=== PATIENT | male | born 1950 | race Caucasian/White ===

== ENCOUNTER 2017-04-13 07:43 | Emergency (ER) | payer BC, MEDICARE ==
[2017-04-13 08:24] VITALS: BP 147/93
[2017-04-13] MEDS ORDERED: Albuterol/Ipratropium 3.0-0.5 MG/3 ML Neb Soln NEB PRN (08:33)
--- NOTE | 2017-04-13 09:45 | CT ---
DATE OF SERVICE: 04/13/17 CLINICAL DATA: NUMBNESS UNENHANCED BRAIN CT: Multislice acquisition through the brain without IV contrast was performed. No priors. There is diffuse cerebral atrophy. No masses or mass effect. No intracranial hemorrhage. No evidence of acute or subacute infarct. There is mild mucosal thickening in the ethmoid sinuses consistent with chronic sinusitis. IMPRESSION: No acute intracranial abnormalities. [id number] [facility]
--- NOTE | 2017-04-13 14:39 | ER ---
HISTORY OF PRESENT ILLNESS: A 66-year-old male who comes in with his with complaints of numbness of the left hand and wrist area. The patient states he woke up with it this morning. It is not changing. There is no pain. He did not have any recent falls or injuries. The patient denies any headache. He denies any weakness of the extremity and denies any symptoms involving his left leg. 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 He is not sure if this is part of it or not. The patient does not have any symptoms such as chest pain, chest tightness, or shortness of breath. He does have chest congestion and a cough. He states it is getting better. He has also been told he has COPD, but he does not use any inhalers for this. OBJECTIVE: GENERAL APPEARANCE: The patient is awake and alert. Pleasant and talkative with clear speech. VITAL SIGNS: Reviewed. Blood pressure initially 136/93, O2 sats are 98%, pulse 78. EYES: Pupils are equal, round, and reactive to light. EOMs are intact. HEAD: Normocephalic. EARS: TMs are normal. ORAL: Mucous membranes are moist. Tonsils are not enlarged or injected. Pharynx not inflamed. NECK: Supple. LUNGS: Reveal slightly reduced air exchange with minimal tightness at endpoints of expiration. CARDIAC: Heart sounds are distinct without murmurs. SKIN: Warm and dry. NEUROLOGIC: Cranial nerves 2 through 12 are intact. Hand grasp is present and equal. The patient has light touch intact and he has full and unguarded range of motion of the left hand as well as the left leg. LAB AND X-RAY: EKG shows a normal sinus rhythm. Head CT without contrast is negative for CVA. Labs include a CBC, which is normal. D-dimer is negative. CMP is unremarkable. Troponin is normal. The patient was given a DuoNeb treatment to help with his lung function and it did help with his breathing and coughing. DIAGNOSES: 1. Left hand and wrist numbness, possible early-stage carpal tunnel. 2. Chronic obstructive pulmonary disease. TREATMENT PLAN: A wrist brace will be given to the patient. He is to wear this mainly at night and during the day as needed. Activity should remain as tolerated with no restrictions, and I want the patient to follow up next week in the clinic with his primary care provider for recheck. Follow up of course sooner if his symptoms should get worse. CRS/MODL /[id number]
== END 2017-04-13 09:20 | disposition home or self-care (01) ==
LOC: LB.ED 07:43
DX: R20.0 Anesthesia of skin (principal); J44.9 Chronic obstructive pulmonary disease, unspecified
CPT/HCPCS: 36415; 70450; 80053; 84484; 85025; 85379; 93005; 99283; 99284-25

== ENCOUNTER 2018-12-31 11:24 | Emergency (ER) | payer MEDICARE, BC ==
[2018-12-31 11:47] VITALS: BP 136/91; PULSE 90
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
[2019-01-02] MEDS: Bacitracin Oint 1 GM U/D Packet TOP ONE (12:00)
== END 2018-12-31 12:13 | disposition home or self-care (01) ==
LOC: LB.ED 11:24
DX: S81.811A Laceration without foreign body, right lower leg, initial encounter (principal); I10 Essential (primary) hypertension; J44.9 Chronic obstructive pulmonary disease, unspecified; Z79.899 Other long term (current) drug therapy; Z91.030 Bee allergy status; V86.79XA Person on outside of other special all-terrain or other off-road motor vehicles injured in nontraffic accident, initial encounter
CPT/HCPCS: 12002; 99282; J2001

== ENCOUNTER 2019-04-15 07:32 | Emergency (ER) | payer MEDICARE, BC ==
[2019-04-15 07:52] VITALS: BP 156/100; PULSE 99
--- NOTE | 2019-04-15 08:22 | EDM.PDOC ---
ED HPI GENERAL MEDICAL PROBLEM - General Chief Complaint: Genitourinary Problem Stated Complaint: ABD PAIN Time Seen by Provider: 04/15/19 08:05 Source of Information: Reports: Patient, RN - History of Present Illness INITIAL COMMENTS - FREE TEXT/NARRATIVE: 68 yo male presents with trouble with urination since about 1 am, he did feel some chills and thought he had the flu. Pain increased into right, lateral, posterior back and did have some indigestion and took a nitro and ibuprofen at home with no relief, some generalized abdominal tenderness and fullness. States last BM yesterday and loose. Treatments [employer]: Reports: NSAIDS Right Lower Posterior Back Pain Score (Numeric/FACES): 8 - Related Data Allergies Allergy/AdvReac Type Severity Reaction Status Date / Time venom-honey bee Allergy Severe Anaphylactic Verified 12/31/18 11:47 [bee venom (honey bee)] Shock Home Meds: Home Meds Metoprolol Tartrate 50 mg PO DAILY 02/01/15 [History] amLODIPine Besylate [Amlodipine Besylate] 5 mg PO DAILY 02/01/15 [History] Aspirin 81 mg PO DAILY 05/20/15 [History] EPINEPHrine [Epinephrine] 0.3 mg SQ ASDIRECTED PRN 05/20/15 [History] Nitroglycerin [Nitrostat] 0.4 mg PO ATDISCHARGE PRN 05/20/15 [History] Spickard-3/DHA/Epa/Fish Oil [Fish Oil 1,000 mg Softgel] 1 tab PO DAILY 05/20/15 [ History] Ramipril 10 mg PO DAILY 05/20/15 [History] Tamsulosin [Tamsulosin 24 Hr] 0.4 mg PO DAILY #30 cap.er 04/15/19 [Rx] Past Medical History HEENT History: Reports: Other (See Below) Other HEENT History: Reading Glasses Cardiovascular History: Reports: Arrhythmia, High Cholesterol, Hypertension Respiratory History: Reports: COPD Gastrointestinal History: Reports: Colon Polyp Dermatologic History: Reports: Psoriasis - Infectious Disease History Infectious Disease History: Reports: Chicken Pox, Measles - Past Surgical History GI Surgical History: Reports: Colonoscopy, Polypectomy Social & Family History - Family History Family Medical History: Noncontributory ED ROS GENERAL - Review of Systems Review Of Systems: See Below Constitutional: Reports: No Symptoms HEENT: Reports: No Symptoms Respiratory: Reports: No Symptoms Cardiovascular: Reports: Other (chest pressure, indigestion) GI/Abdominal: Reports: Abdominal Pain, Nausea. Denies: Vomiting : Reports: Dysuria, Flank Pain Musculoskeletal: Reports: Back Pain Skin: Reports: No Symptoms Neurological: Reports: No Symptoms. Denies: Confusion, Dizziness, Headache ED EXAM, GENERAL - Physical Exam Exam: See Below Exam Limited By: No Limitations General Appearance: Alert, Other (pain 8/10) Throat/Mouth: Normal Voice, No Airway Compromise Head: Atraumatic, Normocephalic Respiratory/Chest: No Respiratory Distress, Lungs Clear, Normal Breath Sounds Cardiovascular: Regular Rate, Rhythm, No Edema GI/Abdominal: Tender Extremities: Normal Inspection, Non-Tender, No Pedal Edema, Normal Capillary Refill Neurological: Alert, Oriented, Normal Cognition Psychiatric: Normal Affect, Normal Mood Skin Exam: Warm, Dry, Normal Color Course - Vital Signs Last Recorded V/S: Last Vital Signs Temp 97.5 F 04/15/19 07:43 Pulse 99 04/15/19 07:43 Resp 16 04/15/19 07:43 BP 156/100 H 04/15/19 07:43 Pulse Ox 96 04/15/19 07:43 - Orders/Labs/Meds Orders: Active Orders 24 hr Category Date Time Status EKG Documentation Completion [RC] ASDIRECTED Care 04/15/19 08:16 Active Abdomen Pelvis wo Cont [CT] Stat Exams 04/15/19 08:27 Taken Saline Lock Insert [OM.PC] Routine Oth 04/15/19 08:30 Ordered Labs: Laboratory Tests 04/15/19 04/15/19 04/15/19 Range/Units 07:55 08:00 08:00 WBC 5.5 D (4.0-11.0) K/uL RBC 4.95 (4.50-6.50) M/uL Hgb 16.3 (13.0-18.0) g/dL Hct 45.5 (40.0-54.0) % MCV 92 (76-96) fL MCH 32.9 H (27.0-32.0) pg MCHC 35.8 H (31.0-35.0) g/dL RDW 11.9 (11.0-16.0) % Plt Count 64 L D (150-400) K/uL MPV 11.4 H (6.0-10.0) fL Neut % (Auto) 72.5 H (45.0-70.0) % Lymph % (Auto) 19.2 L (20.0-40.0) % Preble % (Auto) 7.4 (3.0-10.0) % Eos % (Auto) 0.5 L (1.0-5.0) % Baso % (Auto) 0.4 (0.0-0.5) % Neut # (Auto) 4.01 (2.00-7.50) K/uL Lymph # (Auto) 1.06 L (1.50-4.00) K/uL Preble # (Auto) 0.41 (0.20-0.80) K/uL Eos # (Auto) 0.03 L (0.04-0.40) K/uL Baso # (Auto) 0.02 (0.02-0.10) K/uL Sodium 142 (136-145) mmol/L Potassium 3.7 (3.5-5.1) mmol/L Chloride 102 (98-107) mmol/L Carbon Dioxide 25.1 (21.0-32.0) mmol/L Anion Gap 18.6 H (5.0-15.0) mmol/L BUN 24 (8-26) mg/dL Creatinine 1.06 D (0.70-1.30) mg/dL Est Cr Clr Drug Dosing 74.22 mL/min Estimated GFR (MDRD) > 60 (>60) MLS/MIN BUN/Creatinine Ratio 22.6 (6-25) Glucose 128 H (74-100) mg/dL Calcium 9.5 (8.5-10.1) mg/dL Total Bilirubin 0.7 (0.0-1.0) mg/dL AST 56 H (15-37) U/L ALT 65 (12-78) U/L Alkaline Phosphatase 70 (46-116) U/L Troponin I (0.000-0.060) ng/mL Total Protein 7.3 (6.4-8.2) g/dL Albumin 4.6 (3.4-5.0) g/dL Globulin 2.7 (2.2-4.2) g/dL Albumin/Globulin Ratio 1.7 (0.8-2.0) Urine Color Yellow Urine Appearance Clear (CLEAR) Urine pH 5.0 (5.0-8.0) Ur Specific Lehr >= 1.030 (1.003-1.030) Urine Protein 30 H (NEGATIVE) mg/dL Urine Glucose (UA) Negative (NEGATIVE) mg/dL Urine Ketones Negative (NEGATIVE) mg/dL Urine Occult Blood Small H (NEGATIVE) Urine Nitrite Negative (NEGATIVE) Urine Bilirubin Negative (NEGATIVE) Urine Urobilinogen 0.2 (0.2-1.0) E.U./dL Ur Leukocyte Esterase Negative (NEGATIVE) Urine RBC 0-5 H /HPF Urine WBC 0-5 H /HPF Ur Squamous Epith Cells Few /HPF Amorphous Sediment Occasional /HPF Urine Bacteria Not seen /HPF Urine Other Not Reportable 04/15/19 Range/Units 08:16 WBC (4.0-11.0) K/uL RBC (4.50-6.50) M/uL Hgb (13.0-18.0) g/dL Hct (40.0-54.0) % MCV (76-96) fL MCH (27.0-32.0) pg MCHC (31.0-35.0) g/dL RDW (11.0-16.0) % Plt Count (150-400) K/uL MPV (6.0-10.0) fL Neut % (Auto) (45.0-70.0) % Lymph % (Auto) (20.0-40.0) % Preble % (Auto) (3.0-10.0) % Eos % (Auto) (1.0-5.0) % Baso % (Auto) (0.0-0.5) % Neut # (Auto) (2.00-7.50) K/uL Lymph # (Auto) (1.50-4.00) K/uL Preble # (Auto) (0.20-0.80) K/uL Eos # (Auto) (0.04-0.40) K/uL Baso # (Auto) (0.02-0.10) K/uL Sodium (136-145) mmol/L Potassium (3.5-5.1) mmol/L Chloride (98-107) mmol/L Carbon Dioxide (21.0-32.0) mmol/L Anion Gap (5.0-15.0) mmol/L BUN (8-26) mg/dL Creatinine (0.70-1.30) mg/dL Est Cr Clr Drug Dosing mL/min Estimated GFR (MDRD) (>60) MLS/MIN BUN/Creatinine Ratio (6-25) Glucose (74-100) mg/dL Calcium (8.5-10.1) mg/dL Total Bilirubin (0.0-1.0) mg/dL AST (15-37) U/L ALT (12-78) U/L Alkaline Phosphatase (46-116) U/L Troponin I < 0.017 (0.000-0.060) ng/mL Total Protein (6.4-8.2) g/dL Albumin (3.4-5.0) g/dL Globulin (2.2-4.2) g/dL Albumin/Globulin Ratio (0.8-2.0) Urine Color Urine Appearance (CLEAR) Urine pH (5.0-8.0) Ur Specific Lehr (1.003-1.030) Urine Protein (NEGATIVE) mg/dL Urine Glucose (UA) (NEGATIVE) mg/dL Urine Ketones (NEGATIVE) mg/dL Urine Occult Blood (NEGATIVE) Urine Nitrite (NEGATIVE) Urine Bilirubin (NEGATIVE) Urine Urobilinogen (0.2-1.0) E.U./dL Ur Leukocyte Esterase (NEGATIVE) Urine RBC /HPF Urine WBC /HPF Ur Squamous Epith Cells /HPF Amorphous Sediment /HPF Urine Bacteria /HPF Urine Other Meds: Medications Discontinued Medications Generic Name Dose Route Start Last Admin Trade Name Freq PRN Reason Stop Dose Admin Hydromorphone HCl 0.5 mg 04/15/19 08:34 Dilaudid IVPUSH Q2H PRN Pain (severe 7-10) Sodium Chloride 1,000 mls @ 500 mls/hr 04/15/19 08:30 04/15/19 09:10 Normal Saline IV 500 mls/hr ASDIRECTED CHARY Administration Ketorolac Tromethamine 30 mg 04/15/19 08:39 04/15/19 08:42 Toradol IM 04/15/19 08:40 30 mg ONETIME ONE Administration Ketorolac Tromethamine Confirm 04/15/19 08:47 04/15/19 10:09 Toradol Administered 01/14/20 08:48 Not Given Dose 30 mg .ROUTE .STK-MED ONE Ondansetron HCl 4 mg 04/15/19 08:39 04/15/19 08:41 Zofran Odt PO 4 mg Q4H PRN Administration Nausea/Vomiting Ondansetron HCl Confirm 04/15/19 08:47 04/15/19 10:09 Zofran Odt Administered 04/15/19 08:48 Not Given Dose 4 mg .ROUTE .STK-MED ONE Sodium Chloride 10 ml 04/15/19 08:30 Saline Flush FLUSH ASDIRECTED PRN Keep Vein Open Tamsulosin HCl 0.4 mg 04/15/19 09:31 04/15/19 09:35 Flomax PO 04/15/19 09:32 0.4 mg ONETIME ONE Administration Tamsulosin HCl Confirm 04/15/19 09:32 04/15/19 10:09 Flomax Administered 04/15/19 09:33 Not Given Dose 0.4 mg .ROUTE .STK-MED ONE - Re-Assessments/Exams Free Text/Narrative Re-Assessment/Exam: 04/15/19 09:33 EKG with NSR noted, nausea improved with Zofran, pain decrease with Toradol IM, CT scan with right urolithiasis, non-obstructing. Continue NACL fluid bolus, Flomax po given. Will discharge after IV fluids completed with Vicoden and/or Ibuprofen OTC for relief of pain. Pt is starting to get hungry after the Zofran. Departure - Departure Time of Disposition: 10:52 Disposition: Home, Self-Care 01 Condition: Good Clinical Impression: Kidney stone, Flank pain - Discharge Information *PRESCRIPTION DRUG MONITORING PROGRAM REVIEWED*: Not Applicable *COPY OF PRESCRIPTION DRUG MONITORING REPORT IN PATIENT IMER: Not Applicable Prescriptions: Tamsulosin [Tamsulosin 24 Hr] 0.4 mg PO DAILY #30 cap.er Instructions: Acetaminophen; Hydrocodone tablets or capsules, Kidney Stones, [id number], Tamsulosin capsules Referrals: PCP,None [Primary Care Provider] - Forms: ED Department Discharge Additional Instructions: You have been given painkillers, a medication to help regulate urination and a strainer. Please strain your urine in attempt to catch the stone as it passes, then call the clinic to see if it needs to be tested. Sepsis Event Note - Evaluation Sepsis Screening Result: No Definite Risk - Focused Exam Vital Signs: Vital Signs Temp Pulse Resp BP Pulse Ox 04/15/19 07:43 97.5 F 99 16 156/100 H 96 Date Exam was Performed: 04/15/19 Time Exam was Performed: 17:30 - My Orders Last 24 Hours: My Active Orders 04/15/19 08:16 EKG Documentation Completion [RC] ASDIRECTED 04/15/19 08:27 Abdomen Pelvis wo Cont [CT] Stat 04/15/19 08:30 Saline Lock Insert [OM.PC] Routine - Assessment/Plan Last 24 Hours: My Active Orders 04/15/19 08:16 EKG Documentation Completion [RC] ASDIRECTED 04/15/19 08:27 Abdomen Pelvis wo Cont [CT] Stat 04/15/19 08:30 Saline Lock Insert [OM.PC] Routine Plan: Kidney stone and flank pain: Discharge to home to care of . Rx for Vicoden prn and Flomax 0.4 mg PO daily for 30 days. Strain urine at home and monitor for any gravel. Symptoms should improve in next day to a few days. Non occluding kidney stone noted per CT. No elevated WBC today and no UTI noted. Pt tolerating food and fluids and voiding well. RTC or ER if symptoms worsen or persist.
[2019-04-15] MEDS ORDERED: Sodium Chloride 0.9% 10 ML Syringe FLUSH PRN (08:30)
[2019-04-15] MEDS ORDERED: HYDROmorphone 2 MG/ML Syringe IVPUSH PRN (08:34)
[2019-04-15] MEDS: Ondansetron 4 MG Tab.DIS PO PRN (08:41)
[2019-04-15] MEDS: Ketorolac 30 MG/ML SDV IM ONE (08:42)
[2019-04-15] MEDS: Sodium Chloride 0.9% 1,000 ML IV SCH (09:10)
[2019-04-15] MEDS: Tamsulosin 0.4 MG Cap.ER PO ONE (09:35)
[2019-04-15] MEDS: Tamsulosin 0.4 MG Cap.ER ONE (10:09)
[2019-04-15] MEDS: Ketorolac 30 MG/ML SDV ONE (10:09)
[2019-04-15] MEDS: Ondansetron 4 MG Tab.DIS ONE (10:09)
--- NOTE | 2019-04-16 08:29 | CT ---
Date of Service: 04/15/19 Clinical Data: Severe flank pain UNENHANCED ABDOMEN AND PELVIC CT: Multislice acquisition through the abdomen and pelvis without IV or oral contrast was performed. No priors. There are minimal atelectatic changes in the dependent portion of both lower lungs. The lung bases are otherwise clear. There is a small hiatal hernia. The heart size is normal. The liver is normal size. There are multiple sharply transcribed hypodense lesions within the liver, consistent in appearance with hepatic cysts. The largest measures 3.3 cm axially. Many of these are too small to adequately characterize. The spleen appears normal. There are multiple calcifications within the pancreas, consistent with chronic pancreatitis. The pancreas otherwise appears normal. The right and left adrenals appear normal. The right kidney is abnormal. There is swelling of the right kidney, and there is perinephric fat stranding and fluid. There is also hydronephrosis and hydroureter down to the ureterovesical junction. There is a questionable very small distal ureteral calculus on the right at the ureterovesical junction. All of the findings on the right could be related to pyelonephritis also. The left kidney and left collecting system appear normal. No nephrocalcinosis or nephrolithiasis bilaterally. The bladder is partially fluid filled. There is diffuse bladder wall thickening. This is probably related to nondistention. Cystitis should be considered. The appendix is not dilated. No evidence of appendicitis. There is diverticulosis of the descending and sigmoid colon. No evidence of diverticulitis. The prostate is enlarged. There are calcifications within the prostate consistent with chronic prostatitis. There is a small fat-containing umbilical hernia. There are small bilateral fat -containing inguinal hernias. No free air. No free fluid. No dilated loops of bowel. No adenopathy. No aortic aneurysm. IMPRESSION: Multiple findings as discussed above. [id number] MTDD
== END 2019-04-15 10:52 | disposition home or self-care (01) ==
LOC: LB.ED 07:32
DX: N20.0 Calculus of kidney (principal); I10 Essential (primary) hypertension; E78.00 Pure hypercholesterolemia, unspecified; J44.9 Chronic obstructive pulmonary disease, unspecified; Z79.899 Other long term (current) drug therapy; Z79.82 Long term (current) use of aspirin; Z91.030 Bee allergy status
CPT/HCPCS: 36415; 74176; 80053; 81001; 84484; 85025; 93005; 96360; 96372; 99284; 99284-25; A9270-GY; J1885; J7030

== ENCOUNTER 2021-04-26 16:45 | Emergency (ER) | payer MEDICARE, OTHER ==
[2021-04-26] MEDS ORDERED: Ketorolac 30 MG/ML SDV ONE (17:30)
[2021-04-26] MEDS ORDERED: Ketorolac 30 MG/ML SDV IM ONE (17:30)
[2021-04-26] MEDS ORDERED: Acetaminophen/oxyCODONE 325-5 MG Tab ONE (18:30)
[2021-04-26] MEDS ORDERED: Tamsulosin 0.4 MG Cap.ER PO ONE (18:31)
[2021-04-26] MEDS: Tamsulosin 0.4 MG Cap.ER ONE (18:32)
== END 2021-04-26 18:34 | disposition home or self-care (01) ==
LOC: LB.ED 16:45
DX: N20.0 Calculus of kidney (principal); I10 Essential (primary) hypertension; J44.9 Chronic obstructive pulmonary disease, unspecified; Z91.030 Bee allergy status; Z79.82 Long term (current) use of aspirin; Z79.899 Other long term (current) drug therapy
CPT/HCPCS: 36415; 74018; 80053; 81001; 85025; 96372; 99284; 99285; A9270; J1885

== ENCOUNTER 2021-08-22 14:57 | Emergency (ER) | payer MEDICARE ==
[2021-08-22 15:27] VITALS: BP 152/97; PULSE 79
[2021-08-22] MEDS ORDERED: Ketorolac 60 MG/2 ML SDV IM ONE (15:45)
[2021-08-22] MEDS ORDERED: Ketorolac 30 MG/ML SDV ONE (15:58)
== END 2021-08-22 16:19 | disposition home or self-care (01) ==
LOC: LB.ED 14:57
DX: M25.571 Pain in right ankle and joints of right foot (principal); E78.00 Pure hypercholesterolemia, unspecified; I10 Essential (primary) hypertension; J44.9 Chronic obstructive pulmonary disease, unspecified; Z79.899 Other long term (current) drug therapy
CPT/HCPCS: 73610; 96372; 99283; J1885

== ENCOUNTER 2024-02-25 08:00 | Emergency (ER) | payer MEDICARE ==
[2024-02-25] MEDS ORDERED: Naloxone 2 MG/2 ML Syringe IVPUSH PRN (08:22)
[2024-02-25] MEDS: HYDROmorphone 1 MG/ML Syringe IVPUSH ONE (08:26)
[2024-02-25] MEDS: Ketorolac 30 MG/ML SDV IVPUSH ONE (08:38)
[2024-02-25 08:57] LABS: BASOPHILS ABSOLUTE AUTO 0.02 K/uL (0.02-0.10); BASOPHILS PERCENT AUTO 0.3 % (0.0-0.5); EOSINOPHILS ABSOLUTE AUTO 0.15 K/uL (0.04-0.40); EOSINOPHILS PERCENT AUTO 2.3 % (1.0-5.0); HEMATOCRIT 46.4 % (40.0-54.0); HEMOGLOBIN 16.5 g/dL (13.0-18.0); LYMPHOCYTES ABSOLUTE AUTO 0.91 K/uL (1.50-4.00); LYMPHOCYTES PERCENT AUTO 14.2 % (20.0-40.0); MEAN CORPUSCULAR HEMOGLOBIN 32.3 pg (27.0-32.0); MEAN CORPUSCULAR HGB CONC 35.6 g/dL (31.0-35.0); MEAN CORPUSCULAR VOLUME 91 fL (76-96); MEAN PLATELET VOLUME 10.1 fL (6.0-10.0); MONOCYTES ABSOLUTE AUTO 0.65 K/uL (0.20-0.80); MONOCYTES PERCENT AUTO 10.2 % (3.0-10.0); NEUTROPHILS ABSOLUTE AUTO 4.67 K/uL (2.00-7.50); PLATELET COUNT,PLT 140 K/uL (150-400); RED BLOOD CELL COUNT 5.11 M/uL (4.50-6.50); RED CELL DISTRIBUTION WIDTH 12.5 % (11.0-16.0); WHITE BLOOD CELL COUNT,WBC 6.4 K/uL (4.0-11.0)
[2024-02-25 09:15] LABS: A/G RATIO 1.6 (0.8-2.0); ALANINE AMINOTRANSFERASE,ALT 26 U/L (12-78); ALBUMIN 4.3 g/dL (3.4-5.0); ALKALINE PHOSPHATASE 50 U/L (46-116); ANION GAP 13.9 mmol/L (5.0-15.0); ASPARTATE AMNIOTRANSFERASE,AST 26 U/L (15-37); BILIRUBIN TOTAL 0.9 mg/dL (0.0-1.0); BLOOD UREA NITROGEN,BUN 18 mg/dL (8-26); BUN/CREATININE RATIO 14.5 (6-25); CARBON DIOXIDE,CO2 28.8 mmol/L (21.0-32.0); CHLORIDE,CL 107 mmol/L (98-107); CREATININE 1.24 mg/dL (0.70-1.30); ESTIMATED GFR 62 mL/min (>60); GLUCOSE RANDOM 133 mg/dL (74-100); POTASSIUM,K 3.7 mmol/L (3.5-5.1); SODIUM,NA 146 mmol/L (136-145)
[2024-02-25] MEDS: Sodium Chloride 0.9% 1,000 ML IV ONE (09:51)
[2024-02-25] MEDS: Tamsulosin 0.4 MG Cap.ER PO ONE (10:06)
[2024-02-25 12:39] VITALS: BP 137/78; PULSE 70
[2024-02-25] MEDS: Ketorolac 30 MG/ML SDV ONE (12:39)
== END 2024-02-25 11:01 | disposition home or self-care (01) ==
LOC: LB.ED 08:00
DX: N13.2 Hydronephrosis with renal and ureteral calculous obstruction (principal); I10 Essential (primary) hypertension; E78.00 Pure hypercholesterolemia, unspecified; J44.9 Chronic obstructive pulmonary disease, unspecified; Z79.51 Long term (current) use of inhaled steroids; Z79.82 Long term (current) use of aspirin; Z79.899 Other long term (current) drug therapy; Z91.030 Bee allergy status
CPT/HCPCS: 36415; 74176; 80053; 83690; 85025; 96361; 96374; 96375; 99284; 99284-25; A9270-GY; J1171; J1885; J7030

== ENCOUNTER 2024-06-12 06:57 | Day surgery (SDC) | payer MEDICARE, BC ==
[2024-06-12] MEDS ORDERED: Metoclopramide 10 MG/2 ML SDV IV PRN (07:00)
[2024-06-12] MEDS: Sodium Chloride 0.9% 1,000 ML IV SCH (07:41)
[2024-06-12] MEDS ORDERED: Propofol 200 MG/20 ML SDV ONE (08:30)
[2024-06-12 09:03] VITALS: BP 140/76; PULSE 66
== END 2024-06-12 09:53 | disposition home or self-care (01) ==
LOC: LB.SDS 06:57
PROVIDERS: ATTEND Surgery
DX: Z12.11 Encounter for screening for malignant neoplasm of colon (principal); D12.2 Benign neoplasm of ascending colon; D12.4 Benign neoplasm of descending colon; K57.30 Diverticulosis of large intestine without perforation or abscess without bleeding; Z85.038 Personal history of other malignant neoplasm of large intestine; H66.90 Otitis media, unspecified, unspecified ear; I10 Essential (primary) hypertension; E78.00 Pure hypercholesterolemia, unspecified; J44.9 Chronic obstructive pulmonary disease, unspecified; K21.9 Gastro-esophageal reflux disease without esophagitis; Z79.899 Other long term (current) drug therapy; Z91.030 Bee allergy status
CPT/HCPCS: 88305; J2704; J7030

== ENCOUNTER 2024-06-16 15:01 | Emergency (ER) | payer MEDICARE, BC ==
[2024-06-16] MEDS: Ketorolac 30 MG/ML SDV IM ONE (15:46)
[2024-06-16 15:52] LABS: COLOR,URINE YELLOW
[2024-06-16 15:53] LABS: APPEARANCE,URINE SLIGHTLY CLOUDY (CLEAR); BILIRUBIN,URINE NEGATIVE (NEGATIVE); GLUCOSE,URINE NEGATIVE (NEGATIVE); KETONES,URINE NEGATIVE (NEGATIVE); LEUKOCYTE ESTERASE,URINE NEGATIVE (NEGATIVE); NITRITE,URINE NEGATIVE (NEGATIVE); OCCULT BLOOD,URINE TRACE-INTACT (NEGATIVE); PH,URINE 7.5 (5.0-8.0); PROTEIN,URINE TRACE mg/dL (NEGATIVE); UROBILINOGEN,URINE 0.2 E.U./dL (0.2-1.0)
[2024-06-16 15:54] LABS: BACTERIA,URINE RARE /HPF; HYALINE CASTS,URINE FEW /HPF; SQUAMOUS EPITHELIAL CELLS,UR MANY /HPF
[2024-06-16 17:26] VITALS: BP 133/78; PULSE 85
== END 2024-06-16 16:36 | disposition home or self-care (01) ==
LOC: LB.ED 15:01
DX: S22.42XA Multiple fractures of ribs, left side, initial encounter for closed fracture (principal); R31.21 Asymptomatic microscopic hematuria; J44.9 Chronic obstructive pulmonary disease, unspecified; I10 Essential (primary) hypertension; E78.00 Pure hypercholesterolemia, unspecified; F17.210 Nicotine dependence, cigarettes, uncomplicated; Z91.030 Bee allergy status; Z79.82 Long term (current) use of aspirin; Z79.899 Other long term (current) drug therapy; W00.0XXA Fall on same level due to ice and snow, initial encounter; Y93.89 Activity, other specified
CPT/HCPCS: 71101; 81001; 96372; 99283; 99284; J1885

== ENCOUNTER 2024-10-24 16:15 | Emergency (ER) | payer MEDICARE, BC ==
[2024-10-24 16:58] LABS: BASOPHILS ABSOLUTE AUTO 0.01 K/uL (0.02-0.10); BASOPHILS PERCENT AUTO 0.1 % (0.0-0.5); EOSINOPHILS ABSOLUTE AUTO 0.01 K/uL (0.04-0.40); EOSINOPHILS PERCENT AUTO 0.1 % (1.0-5.0); LYMPHOCYTES ABSOLUTE AUTO 0.90 K/uL (1.50-4.00); LYMPHOCYTES PERCENT AUTO 7.9 % (20.0-40.0); MEAN PLATELET VOLUME 11.4 fL (6.0-10.0); MONOCYTES ABSOLUTE AUTO 0.76 K/uL (0.20-0.80); MONOCYTES PERCENT AUTO 6.7 % (3.0-10.0); NEUTROPHILS ABSOLUTE AUTO 9.73 K/uL (2.00-7.50); NEUTROPHILS PERCENT AUTO 85.2 % (45.0-70.0); PLATELET COUNT,PLT 159 K/uL (150-400); RED BLOOD CELL COUNT 4.70 M/uL (4.50-6.50); RED CELL DISTRIBUTION WIDTH 12.7 % (11.0-16.0); WHITE BLOOD CELL COUNT,WBC 11.4 K/uL (4.0-11.0)
[2024-10-24 17:00] LABS: BASE EXCESS VENOUS -1.3 mm/L (-2-3); BICARBONATE,VENOUS 23.5 mmol/L (23.0-28.0); PCO2 VENOUS 38.1 mm/Hg (41-51); PH,VENOUS 7.40 (7.31-7.41)
[2024-10-24] MEDS: methylPREDNISolone Sodium Succinate 125 MG/2 ML SDV IVPUSH ONE (17:06)
[2024-10-24 17:12] LABS: A/G RATIO 1.3 (0.8-2.0); ALANINE AMINOTRANSFERASE,ALT 23.0 U/L (12-78); ASPARTATE AMNIOTRANSFERASE,AST 22.0 U/L (15-37); BILIRUBIN TOTAL 1.5 mg/dL (0.0-1.0); BLOOD UREA NITROGEN,BUN 17.0 mg/dL (8-26); CARBON DIOXIDE,CO2 27.3 mmol/L (21.0-32.0); CHLORIDE,CL 103.0 mmol/L (98-107); CREATININE 0.78 mg/dL (0.70-1.30); EST CRCL DRUG DOSING (CG) 86.78 mL/min; ESTIMATED GFR 95.0 mL/min (>60); GLUCOSE RANDOM 147.0 mg/dL (74-100); POTASSIUM,K 3.2 mmol/L (3.5-5.1); PROTEIN TOTAL,TP 6.9 g/dL (6.4-8.2); SODIUM,NA 140.0 mmol/L (136-145)
[2024-10-24] MEDS: Potassium Chloride 20 MEQ Tab.ER PO ONE (17:57)
[2024-10-24] MEDS ORDERED: Potassium Chloride 10 MEQ Tab.ER ONE (18:00)
[2024-10-24 20:47] VITALS: BP 132/76; PULSE 118
[2024-10-26] MEDS ORDERED: Sodium Chloride 0.9% 50 ML SDV FLUSH ONE (09:20)
[2024-10-26] MEDS ORDERED: Iopamidol 755 Mg/ML 100 ML Bottle IV SCH (09:30)
== END 2024-10-24 19:00 | disposition home or self-care (01) ==
LOC: LB.ED 16:15
DX: J44.1 Chronic obstructive pulmonary disease with (acute) exacerbation (principal); E87.6 Hypokalemia; I10 Essential (primary) hypertension; E78.00 Pure hypercholesterolemia, unspecified; Z91.030 Bee allergy status; Z79.82 Long term (current) use of aspirin; Z79.51 Long term (current) use of inhaled steroids; Z79.899 Other long term (current) drug therapy
CPT/HCPCS: 36415; 71045; 80053; 82803; 83880; 85025; 94640; 96374; 99285-25; A9270-GY; J2919; J7512

== ENCOUNTER 2024-10-26 08:18 | Emergency (ER) | payer MEDICARE, BC ==
[2024-10-26] MEDS: methylPREDNISolone Sodium Succinate 125 MG/2 ML SDV IVPUSH ONE (08:30)
[2024-10-26 08:56] LABS: BASOPHILS ABSOLUTE AUTO 0.00 K/uL (0.02-0.10); BASOPHILS PERCENT AUTO 0.0 % (0.0-0.5); EOSINOPHILS ABSOLUTE AUTO 0.00 K/uL (0.04-0.40); EOSINOPHILS PERCENT AUTO 0.0 % (1.0-5.0); LYMPHOCYTES ABSOLUTE AUTO 2.21 K/uL (1.50-4.00); LYMPHOCYTES PERCENT AUTO 16.6 % (20.0-40.0); MEAN PLATELET VOLUME 11.2 fL (6.0-10.0); MONOCYTES ABSOLUTE AUTO 1.89 K/uL (0.20-0.80); MONOCYTES PERCENT AUTO 14.2 % (3.0-10.0); NEUTROPHILS ABSOLUTE AUTO 9.23 K/uL (2.00-7.50); NEUTROPHILS PERCENT AUTO 69.2 % (45.0-70.0); PLATELET COUNT,PLT 255 K/uL (150-400); RED BLOOD CELL COUNT 4.86 M/uL (4.50-6.50); RED CELL DISTRIBUTION WIDTH 12.8 % (11.0-16.0); WHITE BLOOD CELL COUNT,WBC 13.3 K/uL (4.0-11.0)
[2024-10-26] MEDS: Iopamidol 755 Mg/ML 100 ML Bottle IV SCH (09:50)
[2024-10-26] MEDS: Sodium Chloride 0.9% 50 ML SDV FLUSH ONE (09:50)
[2024-10-26 09:52] LABS: BASE EXCESS VENOUS 4.6 mm/L (-2-3); BICARBONATE,VENOUS 30.1 mmol/L (23.0-28.0); PCO2 VENOUS 54.0 mm/Hg (41-51); PH,VENOUS 7.35 (7.31-7.41)
[2024-10-26 09:57] LABS: A/G RATIO 0.8 (0.8-2.0); ALANINE AMINOTRANSFERASE,ALT 37.0 U/L (12-78); ASPARTATE AMNIOTRANSFERASE,AST 42.0 U/L (15-37); BILIRUBIN TOTAL 0.8 mg/dL (0.0-1.0); CARBON DIOXIDE,CO2 30.0 mmol/L (21.0-32.0); CHLORIDE,CL 104.0 mmol/L (98-107); GLUCOSE RANDOM 170.0 mg/dL (74-100); POTASSIUM,K 3.3 mmol/L (3.5-5.1); PRO B-TYPE NATRIUR PEPT,BNPPRO 509.0 pg/mL (0-125); PROTEIN TOTAL,TP 7.9 g/dL (6.4-8.2); SODIUM,NA 144.0 mmol/L (136-145)
[2024-10-26 10:16] LABS: BLOOD UREA NITROGEN,BUN 27.0 mg/dL (8-26)
[2024-10-26 10:17] LABS: CREATININE 0.84 mg/dL (0.70-1.30); EST CRCL DRUG DOSING (CG) 79.39 mL/min; ESTIMATED GFR 92.0 mL/min (>60)
[2024-10-26 11:37] LABS: CORONAVIRUS COVID-19 NAA NEGATIVE (NEGATIVE); INFLUENZA A NAA NEGATIVE (NEGATIVE); INFLUENZA B NAA NEGATIVE (NEGATIVE)
[2024-10-26] MEDS: Furosemide 40 MG/4 ML VIAL IVPUSH ONE (11:55)
[2024-10-26 13:04] VITALS: PULSE 129
[2024-10-26 13:09] VITALS: BP 130/79
== END 2024-10-26 12:56 ==
LOC: LB.ED 08:18
DX: J44.1 Chronic obstructive pulmonary disease with (acute) exacerbation (principal); J18.9 Pneumonia, unspecified organism; E78.00 Pure hypercholesterolemia, unspecified; I10 Essential (primary) hypertension; Z87.891 Personal history of nicotine dependence; Z91.030 Bee allergy status; Z79.83 Long term (current) use of bisphosphonates; Z79.899 Other long term (current) drug therapy; Z79.51 Long term (current) use of inhaled steroids
CPT/HCPCS: 36415; 71275; 80053; 82803; 83605; 83880; 84484; 85025; 85379; 87040; 87636; 93005; 94640; 96365; 96368; 96375; 99285; A0425; A0428; A9270; J0456; J0696; J1938; J2919; J7030; J7050; Q9967